=== PATIENT | female | born 2000 | race Caucasian/White ===

== ENCOUNTER → 2019-08-19 | Outpatient (CLI) | payer BC ==
[2019-08-20 07:16] LABS: RUBELLA IGG ANTIBODY 2.84 index (Immune >0.99)
== END | disposition home or self-care (01) ==
LOC: LAB 14:13
PROVIDERS: ATTEND Nurse Practitioner
DX: Z11.1 Encounter for screening for respiratory tuberculosis (principal)
CPT/HCPCS: 36415; 86706; 86735; 86762; 86765; 86787